=== PATIENT | female | born 1965 | race Caucasian/White ===

== ENCOUNTER 2018-04-09 13:53 | Emergency (ER) | payer BC ==
[2018-04-09 14:08] VITALS: BP 126/81; PULSE 74; RESP 18; TEMP 98.4
--- NOTE | 2018-04-09 15:19 | XR ---
EXAMINATION TYPE: XR ankle complete bilateral, XR tibia fibula LT DATE OF EXAM: 04/09/2018 CLINICAL HISTORY: Left lower extremity and ankle pain after falling down the stairs. TECHNIQUE: Frontal, lateral and oblique images of the bilateral and coils were obtained. Frontal and lateral radiograph's of the left tibia and fibula were also performed. COMPARISON: None. FINDINGS: LEFT: There is an obliquely oriented minimally displaced, noncomminuted spiral fracture of the distal diaphysis of the left tibia extending into the posterior malleolus and tibiotalar joint space. No me dial malleolus fracture is seen. Soft tissue swelling of the left lower extremity is generalized. No radiopaque foreign body. Very small Achilles enthesophyte is incidentally seen. No fracture seen of t he proximal tibia or fibula. RIGHT: There is no evidence of acute fracture or dislocation of the right ankle. Accessory ossicle or sequela prior injury is seen at the distal fibula. Punctate dorsal fragmentation of the distal talus with overlying subcutaneous soft tissue swelling may indicate underlying anterior talofibular ligame ntous injury that could be further evaluated with MRI. IMPRESSION: 1. Spiral fracture of the distal diaphysis of the left tibia that is noncomminuted minimally displace d, and extends into the posterior malleolus with intra-articular extent into the tibiotalar joint spa ce. 2. Punctate fragmentation at the distal dorsal talus on the right that may indicate underlying anteri or talofibular ligamentous injury. This could be further evaluated with MRI. No other evidence of acu te fracture or dislocation of the right ankle.
--- NOTE | 2018-04-09 15:20 | ED ---
Lower Extremity Injury HPI - General Chief Complaint: Extremity Injury, Lower Stated Complaint: Leg/ankle injury Time Seen by Provider: 04/09/18 14:24 Source: patient Mode of arrival: wheelchair Limitations: no limitations - History of Present Illness Initial Comments: This a 52-year-old female past medical history of Sanchez's and anxiety who presents today for chief complaint of left ankle pain. Patient states around 1 PM she was walking down a few stairs while at [facility], when she misstepped Missing the bottom stair rolling her left ankle. Patient immediately felt the ground with the left ankle twisted beneath her. Patient felt like she kind of rolled the right ankle on the way down but denies any current pain. Patient stated that she thought she heard a crack. Patient was immediately evaluated by the nurse on staff at [facility], ice is applied, x- ray is elevated patient was given 2 ibuprofen for pain. She was brought immediately to the emergency department complaining of left ankle pain and swelling. Patient denies falling, hitting her head, loss of consciousness or injury to any other extremity. Upon arrival patient's vital signs stable. Patient denied any numbness, tingling, loss sensation, muscle weakness, coolness of the extremity or pallor. Patient admitted to decreased range of motion secondary to pain , however patient states that she was able to weight- bear when walking to and from the car . Patient denies any recent fever, chills , shortness of breath, chest pain, back pain, abdominal pain, nausea or vomiting , numbness or tingling, dysuria or hematuria, constipation or diarrhea, headaches or visual changes, or any other complaints. - Related Data Home Medications Medication Instructions Recorded Confirmed Levothyroxine Sodium [Synthroid] 1 tab PO DAILY 04/09/18 04/09/18 Sertraline HCl [Zoloft] 1 tab PO DAILY 04/09/18 04/09/18 Previous Rx's Medication Instructions Recorded Ibuprofen [Motrin] 800 mg PO Q6H PRN 5 Days #20 tab 04/09/18 Allergies Allergy/AdvReac Type Severity Reaction Status Date / Time No Known Allergies Allergy Verified 04/09/18 14:05 Review of Systems ROS Statement: Those systems with pertinent positive or pertinent negative responses have been documented in the HPI. ROS Other: All systems not noted in ROS Statement are negative. Constitutional: Denies: fever, chills Respiratory: Denies: cough, dyspnea, wheezes, hemoptysis Cardiovascular: Denies: chest pain, palpitations Gastrointestinal: Denies: abdominal pain, nausea, vomiting, diarrhea, constipation Genitourinary: Denies: urgency, dysuria Musculoskeletal: Reports: as per HPI. Denies: back pain, joint swelling, arthralgia Skin: Denies: rash, lesions Neurological: Denies: headache, weakness, numbness, paresthesias, confusion, abnormal gait Past Medical History Past Medical History: Thyroid Disorder ([place]imot[place]) History of Any Multi-Drug Resistant Organisms: None Reported Past Surgical History: Bladder Surgery, Cholecystectomy, Hernia Repair, Orthopedic Surgery Past Psychological History: Anxiety, Depression Smoking Status: Never smoker Past Alcohol Use History: None Reported Past Drug Use History: None Reported General Exam - General Exam Comments Initial Comments: General: The patient is awake and alert, in no distress, and does not appear acutely ill. Eye: Pupils are equal, round and reactive to light, extra-ocular movements are intact. No nystagmus. There is normal conjunctiva bilaterally. No signs of icterus. Ears, nose, mouth and throat: There are moist mucous membranes and no oral lesions. Neck: The neck is supple, there is no tenderness or JVD. Cardiovascular: There is a regular rate and rhythm. No murmur, rub or gallop is appreciated. Respiratory: Lungs are clear to auscultation, respirations are non-labored, breath sounds are equal. No wheezes, stridor, rales, or rhonchi. Musculoskeletal: Decreased range motion of the left ankle secondary to pain. However patient is able to slightly plantarflex and dorsiflex the left ankle, wiggling all toes. There is no pallor to the extremity bilaterally. There is significant soft tissue swelling and mild ecchymosis over the lateral aspect of the left ankle. No abrasions or lacerations. Mild soft tissue swelling with no ecchymosis noted of the right ankle. Patient is able to fully range with 5/ 5 muscle strength the right ankle with plantarflexion dorsiflexion inversion eversion. Full range of motion of the toes with 55 muscle strength. Patient is tender to distal tibia about 4 inches from the ankle mortise as well as over the lateral malleolus of the right ankle. Patient denies any tenderness to patient over the medial malleolus, or proximal tibia-fibula. Patient denies any tenderness to palpation over the medial or lateral malleolus of the right ankle. Sensation intact of the lower extremities equally bilaterally including of the foot distal to the ankle. Dorsalis pedis and posterior tibial pulses equal bilaterally 2+. Capillary refill of the feet bilaterally less than 2 seconds. Compartments are soft and compressible. Neurological: A&O x 3. CN II-XII intact, There are no obvious motor or sensory deficits. Coordination appears grossly intact. Speech is normal. Skin: Skin is warm and dry and no rashes or lesions are noted. Psychiatric: Cooperative, appropriate mood & affect, normal judgment. Limitations: no limitations Course Vital Signs 04/09/18 14:06 Temperature 98.4 F Pulse Rate 74 Respiratory 18 Rate Blood Pressure 126/81 O2 Sat by Pulse 99 Oximetry Procedures - Procedures Initial comment: Posterior mold splint was applied to the left lower extremity with stirrups. Patient tolerated procedure well. Repeat neurovascular examination, patient neurovascularly intact. Compartments soft and compressible. Medical Decision Making - Medical Decision Making Patient's neurovascular exam intact and compartments compressible, no concern for compartment syndrome or neurovascular compromise at this time. Pt stated that opioids or any type of pain medication usually causes her nausea or vomiting, she refused any morphine, norco or any other opioid/opioid analog at this time. Pt was offered Toradol, she accepted. Upon reevaluation she stated that this helped her pain greatly. X-ray of the ankles bilaterally and the left tibia-fibula were obtained revealing a oblique minimally displaced non- comminuted spiral fracture of the distal diaphysis of the left tibia, this extends into the talofibular joint space. X-ray of the right ankle revealed no evidence of acute fracture dislocation, however there was punctate dorsal fragmentation of the distal talus with overlying subcu soft tissue swelling which could've indicated underlying ATFL ligamentous injury this would need further evaluation via MRI. Dr. Adam from [facility] was at work and occurred at the time, he reviewed the x-rays himself. Requesting CT of the left ankle for further evaluation, revealing a separate posterior malleoli or nondisplaced fracture without comminution but with intra-articular extension. As well as redemonstration of the very minimally displaced fracture of the distal left tibia diaphysis. Patient was placed in a posterior mold with stirrups splint splint. Neurovascular exam repeated, revealing no change from previous examination. Patient neurovascularly intact. Compartments soft and compressible. Patient was educated on signs and symptoms of compartment syndrome or vascular compresses and told to return to emergency department if these arise. Patient was discharged in stable condition with follow-up with or pick surgeries in 24 hours. Patient was instructed to nonweight bear until further orthopedic evaluation. Patient stated that she has crutches at home. Patient was discharged in stable condition with prescription for ibuprofen 800 for pain mgmt. Case was discussed in detail with Dr. Tate who agreed with impression and plan and he reviewed the XR himself. Disposition Clinical Impression: Closed fracture of left distal tibia, Moderate right ankle sprain Disposition: HOME SELF-CARE Condition: Good Instructions: Ankle Fracture (ED), Ankle Sprain (ED) Additional Instructions: Please use medication as discussed. Please follow-up with orthopedic surgery in 24-48 hours, NO WEIGHT BEARING ON THE LEFT LEG UNTIL FURTHER ORTHOPEDIC EVALUATION. Please return to emergency room if the symptoms increase or worsen or for any other concerns. Prescriptions: Ibuprofen [Motrin] 800 mg PO Q6H PRN 5 Days #20 tab PRN Reason: Pain Is patient prescribed a controlled substance at d/c from ED?: No Referrals: Nonstaff,Physician [Primary Care Provider] - 1-2 days Ulises Adam MD [Medical Doctor] - 1-2 days Time of Disposition: 15:23
[2018-04-09] MEDS ORDERED: KETOROLAC 60 MG/2 ML VIAL IM STA (15:41)
--- NOTE | 2018-04-09 16:08 | CT ---
EXAMINATION TYPE: CT ankle LT wo con DATE OF EXAM: 04/09/2018 COMPARISON: Left ankle radiographs of the same date HISTORY: Left ankle injury from fall CT DLP: 246.2 mGycm Automated exposure control for dose reduction was used. TECHNIQUE: Multiplanar CT imaging was obtained of the left ankle without intravenous contrast. 3-D re constructions of the left ankle were performed at a separate workstation for review. FINDINGS: There is redemonstration of a very minimally displaced spiral fracture of the distal left tibial diap hysis. The distal fracture fragment is displaced 1 mm laterally. This appears very mildly comminuted and its lateralmost aspect. There is a separate posterior malleolar nondisplaced fracture with extent into the tibiotalar joint space. No medial malleolus fracture seen. There is slight hindfoot varus w ithout dislocation. Tiny chip fracture fragment is seen on series 7 image 35 at the lateral aspect of the distal tibial plafond and likely from ligamentous injury and possible avulsion without definitiv e donor site seen. There is extensive overlying soft tissue swelling of the lateral malleolus also burgos ggestive of associated soft tissue injury. Evaluation of the ligaments and tendons are limited on CT. Punctate osseous fragment is also seen on series 7 image 26 suggesting deltoid ligament injury and p ossible partial colon. No additional fracture or dislocation is seen. Probable bone island is noted w ithin the navicular bone. Very small plantar heel spur is present. IMPRESSION: 1. REDEMONSTRATION OF A VERY MINIMALLY DISPLACED SPIRAL FRACTURE OF THE DISTAL LEFT TIBIAL DIAPHYSIS WITH VERY MILD COMMINUTION IN ITS LATERALMOST ASPECT. 2. SEPARATE POSTERIOR MALLEOLAR NONDISPLACED FRACTURE WITHOUT COMMINUTION BUT WITH INTRA-ARTICULAR EX TENSION. 3. PUNCTATE OSSEOUS FRAGMENTS IN THE DISTRIBUTION OF THE TALOFIBULAR LIGAMENTS AND DELTOID LIGAMENT S UGGESTIVE OF SOFT TISSUE INJURY AND POSSIBLE SMALL AVULSION FRACTURES WITH NO DEFINITIVE DONOR SITE I DENTIFIED. 4. PROMINENT SOFT TISSUE SWELLING OVER THE LATERAL MALLEOLUS ALSO SUGGESTIVE OF SOFT TISSUE INJURY. F INDINGS COULD BE FURTHER EVALUATED WITH MRI AFTER EDEMA IMPROVES.
== END 2018-04-09 16:50 | disposition home or self-care (01) ==
LOC: EC 13:53
DX: S89.192A Other physeal fracture of lower end of left tibia, initial encounter for closed fracture (principal); S93.401A Sprain of unspecified ligament of right ankle, initial encounter; E06.3 Autoimmune thyroiditis; F32.9 Major depressive disorder, single episode, unspecified; F41.9 Anxiety disorder, unspecified; Z79.899 Other long term (current) drug therapy; X50.1XXA Overexertion from prolonged static or awkward postures, initial encounter; W10.9XXA Fall (on) (from) unspecified stairs and steps, initial encounter; Y92.89 Other specified places as the place of occurrence of the external cause
CPT/HCPCS: 99284; 29515; 73610; 73590; 73700; J1885